=== PATIENT | female | born 1995 | race Two or more races ===

== ENCOUNTER 2023-05-18 12:38 | Emergency (ER) | payer OTHER ==
[~2023-05-18] VITALS: Ht 172.7 cm; Wt 87.7 kg
[2023-05-18] MEDS ORDERED: ACET500P3 PO (12:54)
[2023-05-18] MEDS ORDERED: diphenhydrAMINE 50MG/ML VIAL IV STA (17:30)
[2023-05-18] MEDS ORDERED: dexAMETHasone 20MG/5ML VIAL IV ONE (17:30)
[2023-05-18] MEDS ORDERED: METOCLOPRAMIDE INJ 10MG/2ML VIAL IV ONE (17:30)
[2023-05-18] MEDS ORDERED: NS 1,000 ML IV ONE (17:30)
[2023-05-18 18:02] VITALS: BP 109/58; TEMP 98.2; O2SAT 99
[2023-05-18 18:32] LABS: BASO % 0.4 % (0.0-1.0); EOS # 0.1 10^3/uL (0.0-0.5); EOS % 1.4 % (0.0-3.0); HEMATOCRIT 33.5 % (36.0-47.0); HEMOGLOBIN 11.1 g/dl (12.0-15.5); LYMPH # 2.1 10^3/uL (1.5-5.0); LYMPH % 40.8 % (24.0-44.0); MEAN CORPUSCULAR HEMOGLOBIN 28.5 pg (27.0-33.0); MEAN CORPUSCULAR HGB CONC 33.1 g/dl (32.0-36.5); MEAN CORPUSCULAR VOLUME 86.1 fl (80.0-96.0); MONO # 0.4 10^3/uL (0.0-0.8); MONO % 8.1 % (2.0-8.0); NEUTROPHILS # 2.5 10^3/uL (1.5-8.5); NEUTROPHILS % 49.1 % (36.0-66.0); PLATELET COUNT, AUTOMATED 255 10^3/uL (150-450); RED BLOOD COUNT 3.89 10^6/uL (4.00-5.40); WHITE BLOOD COUNT 5.1 10^3/uL (4.0-10.0)
[2023-05-18 18:51] LABS: C REACTIVE PROTEIN QUANTITATIV < 0.40 MG/DL (<1.0)
[2023-05-18 18:53] LABS: BLOOD UREA NITROGEN 10 MG/DL (9-23); CALCIUM LEVEL 8.5 MG/DL (8.5-10.1); CARBON DIOXIDE LEVEL 26 MMOL/L (20-31); CHLORIDE LEVEL 104 MMOL/L (98-107); CREATININE FOR GFR 0.74 MG/DL (0.55-1.30); GLOMERULAR FILTRATION RATE > 60.0 (>60); GLUCOSE, FASTING 67 MG/DL (60-100); POTASSIUM SERUM 4.1 MMOL/L (3.5-5.1); SODIUM LEVEL 138 MMOL/L (136-145)
[2023-05-18 19:09] LABS: ERYTHROCYTE SEDIMENTATION RATE 15 mm/hr (0-20)
== END 2023-05-18 19:36 | disposition home or self-care (01) ==
LOC: M ED 12:38
DX: G43.909 Migraine, unspecified, not intractable, without status migrainosus (principal); K21.9 Gastro-esophageal reflux disease without esophagitis; Z88.8 Allergy status to other drugs, medicaments and biological substances; Z91.018 Allergy to other foods; Z79.899 Other long term (current) drug therapy
CPT/HCPCS: 70450; 80048; 85025; 85652; 86140; 96374; 96375; 99283; J1100; J1200; J2765

== ENCOUNTER 2024-09-23 10:36 | Emergency (ER) | payer OTHER ==
[~2024-09-23] VITALS: Ht 172.7 cm; Wt 89.4 kg
[~2024-09-23 10:36] MED LIST: ACET500P3 PO
[2024-09-23 10:41] VITALS: TEMP 99.1
[2024-09-23 12:00] LABS: BASO % 0.3 % (0.0-1.0); EOS % 0.5 % (0.0-3.0); HEMATOCRIT 34.1 % (36.0-47.0); HEMOGLOBIN 11.6 g/dl (12.0-15.5); LYMPH % 22.7 % (24.0-44.0); MEAN CORPUSCULAR HEMOGLOBIN 29.1 pg (27.0-33.0); MEAN CORPUSCULAR VOLUME 85.7 fl (80.0-96.0); MONO # 0.5 10^3/uL (0.0-0.8); MONO % 5.4 % (2.0-8.0); NEUTROPHILS # 6.1 10^3/uL (1.5-8.5); NEUTROPHILS % 70.4 % (36.0-66.0); PLATELET COUNT, AUTOMATED 171 10^3/uL (150-450); RED BLOOD COUNT 3.98 10^6/uL (4.00-5.40); WHITE BLOOD COUNT 8.7 10^3/uL (4.0-10.0)
[2024-09-23 12:14] LABS: LIPASE 31 U/L (12-53)
[2024-09-23 12:15] LABS: HCG, SERUM QUALITATIVE NEGATIVE (NEGATIVE)
[2024-09-23 12:16] LABS: ALBUMIN 3.7 G/DL (3.2-5.2); ALKALINE PHOSPHATASE 56 U/L (35-104); ALT/SGPT 18 U/L (7.0-40); AST/SGOT 16 U/L (<34); BILIRUBIN,DIRECT 0.2 MG/DL (<0.4); BILIRUBIN,TOTAL 0.5 MG/DL (0.3-1.2); BLOOD UREA NITROGEN 9 MG/DL (9-23); CALCIUM LEVEL 8.6 MG/DL (8.5-10.1); CARBON DIOXIDE LEVEL 28 MMOL/L (20-31); CHLORIDE LEVEL 105 MMOL/L (98-107); CREATININE FOR GFR 0.71 MG/DL (0.55-1.30); GLOMERULAR FILTRATION RATE > 60.0 (>60); GLUCOSE, FASTING 94 MG/DL (60-100); POTASSIUM SERUM 3.7 MMOL/L (3.5-5.1); SODIUM LEVEL 142 MMOL/L (136-145); TOTAL PROTEIN 7.1 G/DL (5.7-8.2)
[2024-09-23] MEDS ORDERED: ISOVUE-370 76% 100ML VIAL As Ordered ONE (12:47)
[2024-09-23 13:49] LABS: KETONE, URINE AUTO RFX NEGATIVE (NEGATIVE); LEUKOCYTE ESTERASE UR AUTO RFX NEGATIVE (NEGATIVE); NITRITE, URINE AUTO RFX NEGATIVE (NEGATIVE); RBC, URINE AUTO RFX 1 /HPF (0-3); SQUAM EPITHELIAL CELL UR AURFX 0 /HPF (0-6)
[2024-09-23 13:54] LABS: WBC, URINE AUTO RFX 24 /HPF (0-3)
[2024-09-23] MEDS: MAGNESIUM CITRATE 300ML BTL PO ONE (14:35)
[2024-09-23] MEDS ORDERED: COLA100C5 PO (14:36)
[2024-09-23 15:02] VITALS: BP 129/86; O2SAT 100
== END 2024-09-23 15:03 | disposition home or self-care (01) ==
LOC: M ED 10:36
DX: R10.31 Right lower quadrant pain (principal); K59.00 Constipation, unspecified; N83.201 Unspecified ovarian cyst, right side; Z88.6 Allergy status to analgesic agent; Z91.018 Allergy to other foods; Z79.1 Long term (current) use of non-steroidal anti-inflammatories (NSAID); Z79.899 Other long term (current) drug therapy
CPT/HCPCS: 36415; 74177; 76830; 76856; 80048; 80076; 81001; 83690; 84703; 85025; 87086; 93976; 99284; Q9967

== ENCOUNTER 2025-01-01 10:16 | Emergency (ER) | payer OTHER ==
[~2025-01-01] VITALS: Ht 172.7 cm; Wt 90.8 kg
[~2025-01-01 10:16] MED LIST changes: +COLA100C5 PO
[2025-01-01] MEDS: traMADol 50 MG TAB PO ONE (13:15)
[2025-01-01 14:11] LABS: BASO # 0.0 10^3/uL (0.0-0.2); BASO % 0.3 % (0.0-1.0); EOS # 0.1 10^3/uL (0.0-0.5); EOS % 2.0 % (0.0-3.0); LYMPH # 2.2 10^3/uL (1.5-5.0); LYMPH % 36.9 % (24.0-44.0); MONO # 0.4 10^3/uL (0.0-0.8); MONO % 7.4 % (2.0-8.0); NEUTROPHILS # 3.1 10^3/uL (1.5-8.5); NEUTROPHILS % 52.9 % (36.0-66.0); PLATELET COUNT, AUTOMATED 211 10^3/uL (150-450)
[2025-01-01 14:37] LABS: CALCIUM LEVEL 8.8 MG/DL (8.5-10.1); CARBON DIOXIDE LEVEL 25 MMOL/L (20-31); CHLORIDE LEVEL 105 MMOL/L (98-107); CREATININE FOR GFR 0.85 MG/DL (0.55-1.30); GLOMERULAR FILTRATION RATE > 90.0 (>60); POTASSIUM SERUM 4.3 MMOL/L (3.5-5.1); SODIUM LEVEL 141 MMOL/L (136-145)
[2025-01-01 14:37] LABS: KETONE, URINE AUTO RFX NEGATIVE (NEGATIVE); LEUKOCYTE ESTERASE UR AUTO RFX NEGATIVE (NEGATIVE); MUCUS, URINE RFX SMALL (NEGATIVE); NITRITE, URINE AUTO RFX NEGATIVE (NEGATIVE); RBC, URINE AUTO RFX 0 /HPF (0-3); SQUAM EPITHELIAL CELL UR AURFX 2 /HPF (0-6); WBC, URINE AUTO RFX 1 /HPF (0-3)
[2025-01-01 14:45] LABS: HCG, SERUM QUALITATIVE NEGATIVE (NEGATIVE)
[2025-01-01 16:13] LABS: Trichomonas vaginalis (AMP) NOT DETECTED (NEGATIVE)
[2025-01-01 16:37] LABS: GC DNA AMPLIFICATION NEGATIVE (NEGATIVE)
[2025-01-01] MEDS ORDERED: TRAM50TA2 PO (16:45)
[2025-01-01 16:51] VITALS: BP 126/65; TEMP 98.3; O2SAT 100
== END 2025-01-01 17:00 | disposition home or self-care (01) ==
LOC: M ED 10:16
DX: N83.209 Unspecified ovarian cyst, unspecified side (principal); D25.9 Leiomyoma of uterus, unspecified; Z87.42 Personal history of other diseases of the female genital tract; Z86.69 Personal history of other diseases of the nervous system and sense organs; K21.9 Gastro-esophageal reflux disease without esophagitis; Z88.6 Allergy status to analgesic agent; Z79.1 Long term (current) use of non-steroidal anti-inflammatories (NSAID); Z79.899 Other long term (current) drug therapy

== ENCOUNTER 2025-02-21 16:01 | Emergency (ER) | payer OTHER ==
[~2025-02-21] VITALS: Ht 172.7 cm; Wt 92.2 kg
[~2025-02-21 16:01] MED LIST changes: +TRAM50TA2 PO
[2025-02-21] MEDS ORDERED: CAMRTAB PO (16:18)
[2025-02-21] MEDS ORDERED: sleeping pill PO (16:18)
[2025-02-21 16:34] VITALS: TEMP 98
[2025-02-21 16:55] LABS: BASO # 0.0 10^3/uL (0.0-0.2); BASO % 0.6 % (0.0-1.0); EOS # 0.1 10^3/uL (0.0-0.5); EOS % 1.3 % (0.0-3.0); LYMPH # 2.6 10^3/uL (1.5-5.0); LYMPH % 38.2 % (24.0-44.0); MONO # 0.5 10^3/uL (0.0-0.8); MONO % 6.8 % (2.0-8.0); NEUTROPHILS # 3.6 10^3/uL (1.5-8.5); NEUTROPHILS % 52.8 % (36.0-66.0); PLATELET COUNT, AUTOMATED 231 10^3/uL (150-450)
[2025-02-21 17:23] LABS: HCG, SERUM QUALITATIVE NEGATIVE (NEGATIVE)
[2025-02-21 17:32] LABS: CALCIUM LEVEL 8.9 MG/DL (8.5-10.1); CARBON DIOXIDE LEVEL 27 MMOL/L (20-31); CHLORIDE LEVEL 104 MMOL/L (98-107); CK-MB VALUE MASS < 1.0 NG/ML (<3.6); CPK CREATINE PHOSPHOKINASE 69 U/L (34-145); CREATININE FOR GFR 0.86 MG/DL (0.55-1.30); GLOMERULAR FILTRATION RATE > 90.0 (>60); POTASSIUM SERUM 5.3 MMOL/L (3.5-5.1); SODIUM LEVEL 141 MMOL/L (136-145)
[2025-02-21] MEDS ORDERED: ISOVUE-370 76% 100 ML VIAL As Ordered ONE (19:46)
[2025-02-21 21:00] VITALS: BP 129/77; O2SAT 99
== END 2025-02-21 21:15 | disposition home or self-care (01) ==
LOC: M ED 16:01
DX: R07.9 Chest pain, unspecified (principal); Z88.6 Allergy status to analgesic agent; Z91.018 Allergy to other foods
CPT/HCPCS: 71275; 80048; 82550; 82553; 84484; 84703; 85025; 85730; 93005; 93041; 94760; 99285; Q9967

== ENCOUNTER 2025-04-25 07:49 | Emergency (ER) | payer OTHER ==
[~2025-04-25] VITALS: Ht 172.7 cm; Wt 92.1 kg
[~2025-04-25 07:49] MED LIST changes: +CAMRTAB PO; +sleeping pill PO
[2025-04-25 08:57] LABS: BASO # 0.0 10^3/uL (0.0-0.2); BASO % 0.4 % (0.0-1.0); EOS # 0.1 10^3/uL (0.0-0.5); EOS % 1.0 % (0.0-3.0); LYMPH # 1.5 10^3/uL (1.5-5.0); LYMPH % 30.4 % (24.0-44.0); MONO # 0.3 10^3/uL (0.0-0.8); MONO % 6.2 % (2.0-8.0); NEUTROPHILS # 3.0 10^3/uL (1.5-8.5); NEUTROPHILS % 61.8 % (36.0-66.0); PLATELET COUNT, AUTOMATED 196 10^3/uL (150-450)
[2025-04-25 09:20] LABS: INR 0.96
[2025-04-25 09:22] LABS: CK-MB VALUE MASS < 1.0 NG/ML (<3.6)
[2025-04-25 09:24] LABS: ALT/SGPT 12 U/L (7.0-40); AST/SGOT 17 U/L (<34); CALCIUM LEVEL 9.0 MG/DL (8.5-10.1); CARBON DIOXIDE LEVEL 28 MMOL/L (20-31); CHLORIDE LEVEL 106 MMOL/L (98-107); CREATININE FOR GFR 0.79 MG/DL (0.55-1.30); GLOMERULAR FILTRATION RATE > 90.0 (>60); POTASSIUM SERUM 3.7 MMOL/L (3.5-5.1); SODIUM LEVEL 143 MMOL/L (136-145)
[2025-04-25 09:29] LABS: CPK CREATINE PHOSPHOKINASE 60 U/L (34-145)
[2025-04-25 09:30] LABS: HCG, SERUM QUALITATIVE NEGATIVE (NEGATIVE)
[2025-04-25] MEDS: IPRATROPIUM 0.5 MG/ALBUTEROL 2.5 MG INH SOL UD 3 ML NEB ONE (09:53)
[2025-04-25] MEDS: ALBUTEROL SULFATE 2.5 MG/0.5 ML INH CONCENTRATE NEB SOLN INH ONE (09:53)
[2025-04-25 10:10] LABS: D-DIMER QUANT 0.34 ug/mL (<0.5)
[2025-04-25 10:18] LABS: CK-MB VALUE MASS < 1.0 NG/ML (<3.6)
[2025-04-25 10:24] LABS: CPK CREATINE PHOSPHOKINASE 51 U/L (34-145)
[2025-04-25] MEDS ORDERED: PRED20TA PO (10:40)
[2025-04-25] MEDS ORDERED: PROA1AER2 INH (10:40)
[2025-04-25 11:00] VITALS: BP 107/77; TEMP 98.2; O2SAT 98
== END 2025-04-25 11:08 | disposition home or self-care (01) ==
LOC: M ED 07:49
DX: J45.909 Unspecified asthma, uncomplicated (principal); K21.9 Gastro-esophageal reflux disease without esophagitis; G43.909 Migraine, unspecified, not intractable, without status migrainosus; Z79.3 Long term (current) use of hormonal contraceptives; Z79.899 Other long term (current) drug therapy; Z88.6 Allergy status to analgesic agent; Z91.018 Allergy to other foods
CPT/HCPCS: 71045; 80048; 80076; 82550; 82553; 84484; 84703; 85025; 85379; 85610; 87486; 87581; 87633; 87798; 93005; 93041; 94640; 94760; 96374; 99285; J2919